=== PATIENT | male | born 1990 | race Caucasian/White ===

== ENCOUNTER 2016-10-18 11:13 | Emergency (ER) | payer BC ==
[~2016-10-18] VITALS: Ht 188 cm; Wt 86.0 kg
[2016-10-18 12:38] VITALS: BP 130/79
== END 2016-10-18 14:35 | disposition home or self-care (01) ==
LOC: ED 14:23
DX: S16.1XXA Strain of muscle, fascia and tendon at neck level, initial encounter (principal); S30.811A Abrasion of abdominal wall, initial encounter; G44.319 Acute post-traumatic headache, not intractable; X58.XXXA Exposure to other specified factors, initial encounter; Y93.39 Activity, other involving climbing, rappelling and jumping off; Y92.89 Other specified places as the place of occurrence of the external cause; Y99.8 Other external cause status
CPT/HCPCS: 70450; 70486; 72125; 99284

== ENCOUNTER 2020-12-31 09:28 | Emergency (ER) | payer BC, OTHER ==
[~2020-12-31] VITALS: Ht 188 cm; Wt 96.4 kg
[2020-12-31] MEDS ORDERED: MAALOX/HYOSCYAMINE/LIDOCAINE 45 ML BTL PO ONE (10:00)
[2020-12-31] MEDS ORDERED: MAALOX/HYOSCYAMINE/LIDOCAINE 45 ML BTL ONE (10:10)
[2020-12-31 10:24] LABS: BASOPHILS % (AUTO) 1 % (0-1); EOSINOPHILS % (AUTO) 1 % (1-7); LYMPHOCYTES % (AUTO) 43 % (22-44); MEAN CORPUSCULAR HEMOGLOBIN 32.1 pg (27.5-34.5); MEAN CORPUSCULAR HGB CONC 34.1 g/dL (33.2-36.2); MEAN PLATELET VOLUME 9.5 fL (7.4-10.4); MONOCYTES % (AUTO) 10 % (2-9); NEUTROPHILS % (AUTO) 46 % (42-75); PLATELET COUNT 164 x10^3/uL (130-400); RED BLOOD COUNT 4.58 x10^6/uL (4.38-5.82)
--- NOTE | 2020-12-31 10:35 | NUR ---
patient presents to the ER with complaints of LUQ pain for months, but has recently been worse for the past couple days. Patient states that he thinks it may be acid reflux, but is concerned that it could be his gallbladder. Patient admits that the pain is worse when he drinks alcohol.
[2020-12-31 10:36] LABS: ALANINE AMINOTRANSFERASE 49 U/L (12-78); ALBUMIN 4.2 g/dL (3.4-5.0); ANION GAP 7 mmol/L (5-15); CALCIUM 9.3 mg/dL (8.5-10.1); CHLORIDE 109 mmol/L (98-107); CREATININE 1.03 mg/dL (0.7-1.3)
[2020-12-31 10:38] LABS: ALKALINE PHOSPHATASE 73 U/L (45-117); BILIRUBIN,TOTAL 0.5 mg/dL (0.2-1.0); TOTAL PROTEIN 7.8 g/dL (6.4-8.2)
--- NOTE | 2020-12-31 10:43 | NUR ---
PATIENT SITTING COMFORTABLY IN BED AT THIS TIME. PATIENT INSTRUCTED ON HOW TO USE CALL LIGHT AND IS CURRENTLY WATCHING TV. PATIENT HAS NO OTHER NEEDS AT THIS TIME
[2020-12-31 10:47] LABS: MICROSCOPIC NOT IND
[2020-12-31] MEDS ORDERED: SODIUM CHLORIDE FLUSH 10ML SYR IVF ONE (11:00)
--- NOTE | 2020-12-31 11:05 | NUR ---
this rn supervised rectal exam by provider
[2020-12-31] MEDS ORDERED: OMNIPAQUE 350 MG/ML, 100ML BOTTLE ONE (11:57)
[2020-12-31 12:47] VITALS: BP 131/62
== END 2020-12-31 13:00 | disposition home or self-care (01) ==
LOC: ED 12:59
DX: K29.00 Acute gastritis without bleeding (principal); K64.8 Other hemorrhoids; R94.31 Abnormal electrocardiogram [ECG] [EKG]
CPT/HCPCS: 36415; 71045; 74177; 80053; 81003; 83690; 85025; 93005; 99285; Q9967